=== PATIENT | male | born 1995 | race Caucasian/White ===

== ENCOUNTER 2016-11-26 06:13 | Emergency (ER) | payer OTHER ==
[2016-11-26 06:23] VITALS: TEMP 97.2
--- NOTE | 2016-11-26 06:39 | EDPHY ---
H & P Stated Complaint: hx ibs diarrhea and blood in stool tonight - Personal History Current Tetanus/Diphtheria Vaccine: No Current Tetanus Diphtheria and Acellular Pertussis (TDAP): No - Medical/Surgical History Hx Asthma: Yes Hx Chronic Respiratory Disease: No Hx Diabetes: No Hx Cardiac Disease: No Hx Renal Disease: No Hx Cirrhosis: No Hx Alcoholism: No Hx HIV/AIDS: No Hx Splenectomy or Spleen Trauma: No Other PMH: Strep, anxiety, wisdom teeth removed. ibs - Social History Smoking Status: Current some day smoker HPI/ROS: Chief complaint: Abdominal pain and diarrhea HPI: 21-year-old male began having some abdominal cramping at about 10 o'clock last night started having multiple episodes of diarrhea starting early in the morning. Patient states that initially it was watery and brown but is then started getting blood tinged then bloody. Initially was red blood and then got a bit darker. He says he does 15 or 20 episodes this morning. Has had some mild nausea but no vomiting. Pain has been in thelower abdominal on both on the left and the right up to about a 7 on 10 at its worst. Denies any recent travel. No new foods or ingestions. No ill contacts. He has had similar episodes in the past and has seen a GI doctor in [place] and was told that might be irritable bowel. He had a CT scan at that time which showed inflammation of his colon. They did discuss the of possible Crohn's disease and it was suggested to him to have a colonoscopy but the patient has not done so yet. Denies any fevers or chills. No chest pain or shortness of breath. No urinary symptoms. He does not drink alcohol. Smokes occasional marijuana. Does not smoke cigarettes or use any other recreational drugs. ROS: 10 point Review of Systems is negative except as noted in the HPI. Past medical history: possible Irritable bowel syndrome medications: None allergies: None Physical exam: Gen: Awake, Alert, Uncomfortable appearing HEENT: Nose: no rhinorrhea Eyes: PERRLA, EOMI Mouth: Dry mucosa Neck: Supple, no JVD Chest: nontender, lungs clear to auscultation Heart: S1, S2 normal, no murmur Abd: Soft, bilateral lower abdominal tenderness left greater than right with mild voluntary guarding no rebound Back: no CVA tenderness, no midline tenderness Ext: no edema, non-tender Skin: no rash Neuro: CN II-XII intact, Sensation grossly intact, Strength 5/5 in bilateral upper and lower extremities (Zain Wright) Constitutional: Initial Vital Signs Temperature (C) 36.2 C 11/26/16 06:17 Heart Rate 60 11/26/16 06:17 Respiratory Rate 18 11/26/16 06:17 Blood Pressure 129/77 H 11/26/16 06:17 O2 Sat (%) 96 11/26/16 06:17 O2 Delivery Mode Room Air Allergies/Adverse Reactions: No Known Allergies Allergy (Unverified 11/14/13 20:20) Home Medications: Medication Instructions Recorded levOFLOXACIN [levAQUIN (*)] 750 mg PO DAILY #4 tab 11/26/16 Medical Decision Making ED Course/Re-evaluation: to 1-year-old male presenting with abdominal pain and bloody diarrhea. Does not have any symptoms suggestive of infection. Will send blood work CBC, basic metabolic panel. IV fluids. Analgesia. He does not have a surgical abdomen at this time but he does have some lower abdominal tenderness. Given his medical history I suspect he might have undiagnosed Crohn's disease. If he is feeling better plan will be to likely refer for outpatient colonoscopy with gastroenterology. (Zain Wright) Other Provider: Care assumed from Dr. Rick Wright at 6:50 a.m.; plan for IV hydration and labs with outpatient GI referral if feeling better. 737: Labs reviewed including normal white blood cell count hematocrit, normal electrolytes. 740: Abdomen soft and nontender, labs reviewed with patient, symptoms are identical in character and quality to previous episodes except today with more severity. 935: Normal abdominal exam, plan to phone consult gastroenterology and ask for recommendations. 1029: Discussed patient's case in detail with Dr. Santos who recommends oral Levaquin an outpatient follow-up in the clinic. Rationale discussed with the patient and consented. He was warned about the black box warning for Levaquin and tendon injury. I feel that in this case potential benefit outweighs potential harm especially with this specific recommendation for that drug from specialist rn lactation consultant. Stool panel pending at this time. (Demar Alejandre) - Data Points Laboratory Results: Laboratory Results 11/26/16 06:51 11/26/16 06:51 11/26/16 11/26/16 06:51 06:51 WBC 8.46 10^3/uL 10^3/uL (3.80-9.50) RBC 5.28 10^6/uL 10^6/uL (4.40-6.38) Hgb 16.6 g/dL g/dL (13.7-17.5) Hct 46.4 % % (40.0-51.0) MCV 87.9 fL fL (81.5-99.8) MCH 31.4 pg pg (27.9-34.1) MCHC 35.8 g/dL g/dL (32.4-36.7) RDW 11.9 % % (11.5-15.2) Plt Count 218 10^3/uL 10^3/uL (150-400) MPV 11.0 fL fL (8.7-11.7) Neut % (Auto) 71.0 % % (39.3-74.2) Lymph % (Auto) 19.6 % % (15.0-45.0) [place] % (Auto) 8.3 % % (4.5-13.0) Eos % (Auto) 0.5 % L % (0.6-7.6) Baso % (Auto) 0.4 % % (0.3-1.7) Nucleat RBC Rel Count 0.0 % % (0.0-0.2) Absolute Neuts (auto) 6.01 10^3/uL 10^3/uL (1.70-6.50) Absolute Lymphs (auto) 1.66 10^3/uL 10^3/uL (1.00-3.00) Absolute Monos (auto) 0.70 10^3/uL 10^3/uL (0.30-0.80) Absolute Eos (auto) 0.04 10^3/uL 10^3/uL (0.03-0.40) Absolute Basos (auto) 0.03 10^3/uL 10^3/uL (0.02-0.10) Absolute Nucleated RBC 0.00 10^3/uL 10^3/uL (0-0.01) Immature Gran % 0.2 % % (0.0-1.1) Immature Gran # 0.02 10^3/uL 10^3/uL (0.00-0.10) Sodium 143 mEq/L mEq/L (134-144) Potassium 4.4 mEq/L mEq/L (3.5-5.2) Chloride 104 mEq/L mEq/L (97-110) Carbon Dioxide 25 mEq/l mEq/l (22-31) Anion Gap 14 mEq/L mEq/L (8-16) BUN 14 mg/dL mg/dL (7-23) Creatinine 0.8 mg/dL mg/dL (0.7-1.3) Estimated GFR > 60 Glucose 96 mg/dL mg/dL (70-100) Calcium 10.4 mg/dL mg/dL (8.5-10.4) Microbiology Results: MICROBIOLOGY 11/26/16 06:40 Stool Gastrointestinal Tract Panel (PCR) - Final No Organism Detected Medications Given: Discontinued Medications Sodium Chloride (Ns) 1,000 mls @ 0 mls/hr IV ONCE ONE PRN Reason: Wide Open Stop: 11/26/16 06:59 Last Admin: 11/26/16 07:11 Dose: 1,000 mls Sodium Chloride (Ns) 1,000 mls @ 0 mls/hr IV ONCE ONE PRN Reason: Wide Open Stop: 11/26/16 06:59 Last Admin: 11/26/16 07:24 Dose: 1,000 mls Levofloxacin (Levaquin) 750 mg PO EDNOW ONE PRN Reason: Protocol Stop: 11/26/16 10:59 Last Admin: 11/26/16 11:05 Dose: 750 mg Morphine Sulfate (Morphine) 4 mg IVP EDNOW ONE Stop: 11/26/16 06:53 Last Admin: 11/26/16 07:06 Dose: Not Given Ondansetron HCl (Zofran) 4 mg IVP EDNOW ONE Stop: 11/26/16 06:53 Last Admin: 11/26/16 07:11 Dose: Not Given Departure - Departure Disposition: Home, Routine, Self-Care Clinical Impression: Diarrhea Qualifiers: Diarrhea type: unspecified type Qualified Code(s): R19.7 - Diarrhea, unspecified Condition: Good Instructions: Acute Diarrhea (ED) Referrals: KHALIDA GARCIA [Other] - As per Instructions Chris Santos MD [Medical Doctor] - 5-7 days, call for appt. (local GI referral; followup this week) Prescriptions: levOFLOXACIN [levAQUIN (*)] 750 mg PO DAILY #4 tab
[2016-11-26] MEDS ORDERED: ONDANSETRON 4 MG/2 ML VIAL ONE (06:40)
[2016-11-26] MEDS ORDERED: ONDANSETRON 4 MG/2 ML VIAL IVP ONE (06:52)
[2016-11-26] MEDS ORDERED: NS 1,000 ML IV ONE ×2 (06:58)
[2016-11-26 07:07] LABS: % IMMATURE GRANULYOCYTES 0.2 % (0.0-1.1); ABSOLUTE IMMATURE GRANULOCYTES 0.02 10^3/uL (0.00-0.10); ADD DIFF? NO; ADD MORPH? NO; ADD SCAN? NO; ATYPICAL LYMPHOCYTE FLAG 10 (0-99); FRAGMENT RBC FLAG 0 (0-99); HEMATOCRIT 46.4 % (40.0-51.0); HEMOGLOBIN 16.6 g/dL (13.7-17.5); LEFT SHIFT FLG 0 (0-99); LIPEMIA HEMOLYSIS FLAG 90 (0-99); MEAN CELL HEMOGLOBIN 31.4 pg (27.9-34.1); MEAN CELL HEMOGLOBIN CONCENTR. 35.8 g/dL (32.4-36.7); MEAN CELL VOLUME 87.9 fL (81.5-99.8); PLATELET CLUMPS FLAG 10 (0-99); PLATELET COUNT 218 10^3/uL (150-400); RED BLOOD CELL COUNT 5.28 10^6/uL (4.40-6.38); RED CELL DISTRIBUTION WIDTH 11.9 % (11.5-15.2)
[2016-11-26 07:24] LABS: ANION GAP 14 mEq/L (8-16); CALCIUM 10.4 mg/dL (8.5-10.4); CARBON DIOXIDE 25 mEq/l (22-31); CHLORIDE 104 mEq/L (97-110); CREATININE 0.8 mg/dL (0.7-1.3); GLOMERULAR FILTRATION RATE > 60; GLUCOSE 96 mg/dL (70-100); POTASSIUM 4.4 mEq/L (3.5-5.2); SODIUM 143 mEq/L (134-144)
[2016-11-26 07:31] VITALS: RESP 16
[2016-11-26 10:44] VITALS: BP 115/67; PULSE 57; O2SAT 96
== END 2016-11-26 11:06 | disposition home or self-care (01) ==
DX: R19.7 Diarrhea, unspecified (principal); J45.909 Unspecified asthma, uncomplicated; F17.200 Nicotine dependence, unspecified, uncomplicated
CPT/HCPCS: J2405

== ENCOUNTER → 2017-02-15 | Outpatient (CLI) | payer BC | LOC: FIMAGING 07:32 | PROVIDERS: ATTEND Physician Assistant | DX: K76.89 Other specified diseases of liver (principal); R16.1 Splenomegaly, not elsewhere classified ==

== ENCOUNTER 2019-03-06 23:54 | Emergency (ER) | payer OTHER, BC | END 2019-03-07 01:18 | disposition home or self-care (01) ==